=== PATIENT | female | born 1955 | race African-American/Black ===

== ENCOUNTER 2019-09-25 11:52 | Emergency (ER) | payer BC, MEDICAID ==
[~2019-09-25] VITALS: Ht 170.2 cm; Wt 90.7 kg
[2019-09-25 14:46] VITALS: BP 152/82
== END 2019-09-25 15:42 | disposition home or self-care (01) ==
LOC: ER 11:52
DX: J06.9 Acute upper respiratory infection, unspecified (principal); R51 Headache; E11.9 Type 2 diabetes mellitus without complications; K21.9 Gastro-esophageal reflux disease without esophagitis; E78.5 Hyperlipidemia, unspecified; I25.2 Old myocardial infarction